=== PATIENT | female | born 1950 ===

== ENCOUNTER 2018-08-06 06:57 | Day surgery (SDC) | payer OTHER ==
[~2018-08-06 06:57] MED LIST: AMLODIPINE BESYL5 MG PO; GABAPENTIN PO; IRBESARTAN-HCT1 EAC1 PO; OMEPRAZOLE20 M1 PO; TIZANIDINE HCL4 M1 PO; VENLAFAXINE HCL25 MG PO
== END 2018-08-06 12:55 | disposition home or self-care (01) ==
LOC: CIR.AMB 06:57
DX: M47.816 Spondylosis without myelopathy or radiculopathy, lumbar region (principal)